=== PATIENT | male | born 1965 | race Caucasian/White ===

== ENCOUNTER 2023-04-23 14:32 | Emergency (ER) | payer OTHER ==
[~2023-04-23] VITALS: Ht 180.3 cm; Wt 99.3 kg
[2023-04-23 14:51] VITALS: BP 136/80; PULSE 69; RESP 20; TEMP 98.6; O2SAT 93
[2023-04-23 16:56] LABS: APPEARANCE,URINE CLEAR (CLEAR); BILIRUBIN,URINE NEGATIVE (NEGATIVE); BLOOD, URINE TRACE-I (NEGATIVE); COLOR,URINE YELLOW (YELLOW); LEUKOCYTE ESTERASE ,URINE NEGATIVE (NEGATIVE); NITRITE, URINE NEGATIVE (NEGATIVE); PROTEIN,URINE NEGATIVE (NEGATIVE); UGLUCOSE NEGATIVE (NEGATIVE); UROBILINOGEN,URINE 0.2 EU/dL (0.2 - 1)
== END 2023-04-23 17:55 | disposition home or self-care (01) ==
LOC: MED 14:32
DX: N50.3 Cyst of epididymis (principal); N50.812 Left testicular pain; Z79.899 Other long term (current) drug therapy
CPT/HCPCS: 76870; 81003; 99284

== ENCOUNTER 2023-04-24 07:13 | Emergency (ER) | payer OTHER | END 2023-04-24 07:35 | disposition left against medical advice (07) | LOC: MED 07:13 | DX: Z53.21 Procedure and treatment not carried out due to patient leaving prior to being seen by health care provider (principal) ==